=== PATIENT | female | born 1930 | race Two or more races ===

== ENCOUNTER → 2016-04-02 | Outpatient (CLI) | payer OTHER, BC ==
--- NOTE | 2016-04-02 15:43 | DX ---
Left Tibia-fibula Reason for examination: Persistent pain in the lower left leg of an 85-year-old female who sustained an injury approximately 6 months ago. Findings: A fracture or other acute osseous abnormality is not identified. Mild osseous demineralizat ion is noted. The soft tissues are unremarkable. The ankle mortise is normally aligned. Mild degenera tive changes are seen involving the left knee. Impression: Negative for acute osseous abnormality. If symptoms persist, MRI could be considered for further evaluation.
== END ==
LOC: BMCIMAGING 15:08
PROVIDERS: ATTEND Internal Medicine
DX: M79.605 Pain in left leg (principal); K92.1 Melena; M54.5 Low back pain; R15.9 Full incontinence of feces; Z79.899 Other long term (current) drug therapy

== ENCOUNTER → 2016-09-18 | Outpatient (CLI) | payer OTHER, BC | LOC: BMCIMAGING 14:52 | PROVIDERS: ATTEND Internal Medicine Rheumatology | DX: M81.0 Age-related osteoporosis without current pathological fracture (principal) ==

== ENCOUNTER → 2017-04-10 | Outpatient (CLI) | payer OTHER, BC | LOC: BMCIMAGING 12:30 | PROVIDERS: ATTEND Internal Medicine | DX: M79.662 Pain in left lower leg (principal) ==